=== PATIENT | female | born 1940 | race Caucasian/White ===

== ENCOUNTER 2018-12-04 22:18 | Outpatient (CLI) | payer MEDICARE, OTHER | END 2018-12-04 22:19 | disposition critical access hospital (66) | LOC: EMS 22:18 | PROVIDERS: ATTEND Surgery | DX: M54.9 Dorsalgia, unspecified (principal); R25.2 Cramp and spasm; R06.00 Dyspnea, unspecified | CPT/HCPCS: A0425; A0427 ==

== ENCOUNTER 2018-12-04 22:58 | Emergency (ER) | payer MEDICARE, OTHER ==
--- NOTE | 2018-12-05 00:11 | ED Physician Documentation ---
PD HPI BACK PAIN - Stated complaint Stated Complaint: Back PX - Chief complaint Chief Complaint: Back Pain - History obtained from History obtained from: Patient - History of Present Illness Timing - onset: Today, Other (Just prior to arrival) Timing - details: Abrupt onset Location: Mid, Lower Quality: Spasm Associated symptoms: No: Weakness, Numbness, Incontinent of urine Worsened by: Movement Recently seen: Not recently seen - Additional information Additional information: This is an 78-year-old woman who presents with her complains that she is having "terrible back pain". Patient has a long-standing history of back pain is Bobo had surgery and had an MRI done before she left [place] on vacation about a month ago and they told her she probably needs more surgery. Her doctor sent her on vacation with hydrocodone and Flexeril [place] and she got this terrible pain in her back so she went to the emergency department at [facility]. She said the pain was just unbearable. They gave her a dose of Toradol. Told her to stop taking hydrocodone and the Flexeril and placed her on Robaxin and Valium. She took a Valium tablet at 7 PM tonight and Robaxin around 930. She tried to lay down in the recliner to sleep but could not get comfortable so she went to sit down on the side of the bed and lay back and the back just spasmed and she was in e xcruciating pain. The ambulance was called and she was given 2 mg of morphine in route and the pain is now down to 5 out of 10 but it certainly increases significantly with movement. She cannot take anti-inflammatories because she had a partial gastrectomy secondary to ulcers and cannot take NSAIDs. They are planning to be here till the . She does have pain from the sciatic region that is chronic not any worse now. She denies abdominal pain and has had no nausea. Denies dysuria. She reports a history of pancreatitis. Review of Systems Constitutional: denies: Fever Respiratory: denies: Dyspnea GI: denies: Abdominal Pain, Nausea : denies: Dysuria Skin: denies: Rash Musculoskeletal: reports: Back pain Neurologic: reports: Other (Radicular pain due to sciatica). denies: Generalized weakness, Focal weakness PD PAST MEDICAL HISTORY - Past Medical History Past Medical History: Yes Cardiovascular: High cholesterol Respiratory: None Neuro: Peripheral neuropathy Endocrine/Autoimmune: None GI: GI bleed, Ulcers, Pancreatitis OFFICE TECHNICIAN: None : None HEENT: Macular degeneration Psych: Depression Musculoskeletal: Chronic back pain Derm: None - Past Surgical History Past Surgical History: Yes General: Cholecystectomy, Gastric surgery Ortho: Spine surgery /OFFICE TECHNICIAN: Hysterectomy HEENT: Cataracts - Present Medications Home Medications: Ambulatory Orders Medication Instructions Recorded Confirmed Escitalopram Oxalate [Lexapro] 20 mg PO DAILY 12/04/18 12/04/18 Esomeprazole Magnesium [Nexium] 40 mg PO DAILY PM 12/04/18 12/04/18 Gabapentin 300 mg PO TID 12/04/18 12/04/18 Methocarbamol [Robaxin-750] 750 mg PO QID 12/04/18 12/04/18 diazePAM [Diazepam] 5 mg PO Q8HR 12/04/18 12/04/18 predniSONE [Deltasone] 40 mg PO DAILY 12/04/18 12/04/18 rOPINIRole [Requip] 0.25 mg PO DAILY PM 12/04/18 12/04/18 - Allergies Allergies/Adverse Reactions: Allergies Allergy/AdvReac Type Severity Reaction Status Date / Time codeine Allergy Hives Verified 12/04/18 23:21 pentazocine [From [place]] Allergy Unknown Verified 12/04/18 23:21 - Social History Does the pt smoke?: Yes Smoking Status: Current some day smoker Does the pt drink ETOH?: No Does the pt have substance abuse?: No - Immunizations Immunizations are current?: Yes - POLST Patient has POLST: No PD ED PE NORMAL - Vitals Vital signs reviewed: Yes - General General: Alert and oriented X 3, No acute distress, Well developed/nourished, Other (Patient is moving around in the bed without any difficulty occasionally will grimace and grabbed the side of the railing with movement.) - HEENT HEENT: Atraumatic - Cardiac Cardiac: RRR, No murmur - Respiratory Respiratory: No respiratory distress, Clear bilaterally - Abdomen Abdomen: Normal bowel sounds, Soft - Back Back: No CVA TTP - Derm Derm: Normal color, Warm and dry, No rash - Extremities Extremities: No deformity - Neuro Neuro: Alert and oriented X 3, No motor deficit, No sensory deficit, Normal speech - Psych Psych: Normal mood, Normal affect Results - Vitals Vitals: Vital Signs - 24 hr 12/04/18 23:02 Temperature 36.2 C L Heart Rate 73 Respiratory 18 Rate Blood Pressure 148/84 H O2 Saturation 98 Oxygen O2 Source Room air - Labs Labs: Laboratory Tests 12/05/18 01:05 Urine Color YELLOW Urine Clarity CLEAR Urine pH 5.0 Ur Specific [place] 1.025 Urine Protein NEGATIVE Urine Glucose (UA) NEGATIVE Urine Ketones NEGATIVE Urine Occult Blood NEGATIVE Urine Nitrite NEGATIVE Urine Bilirubin NEGATIVE Urine Urobilinogen 0.2 (NORMAL) Ur Leukocyte Esterase TRACE H Urine RBC None Seen Urine WBC 0-3 Ur Squamous Epith Cells FEW Squamous Urine Bacteria None Seen Ur Microscopic Review INDICATED Urine Culture Comments INDICATED PD MEDICAL DECISION MAKING - ED course Complexity details: reviewed results, d/w patient ED course: Urinalysis had only a couple white blood cells and a culture has been set up. Patient has not had any significant urinary symptoms so we will wait for the culture to decide if needs treatment. She got Toradol IV and then was up got herself dressed pulled out her IV and said she was ready to go. As I walked in the room she just bent down to pull her shoes on and seemed to be moving fairly easily. Departure - Departure Disposition: 01 Home, Self Care Clinical Impression: Back pain Qualifiers: Back pain location: low back pain Chronicity: chronic Back pain laterality: midline Sciatica presence: with sciatica Sciatica laterality: sciatica of left side Qualified Code(s): M54.42 - Lumbago with sciatica, left side; G89.29 - Other chronic pain Condition: Good Instructions: ED Chronic Pain Management Follow-Up: your,doctor [Other] Comments: Continue to take the Robaxin, Valium and prednisone that you are prescribed. Can try ice on the lower back. Follow-up with your doctor about further pain management.
[2018-12-05] MEDS ORDERED: KETOROLAC 30 MG/ML VIAL IVP STA (00:26)
[2018-12-05 01:11] LABS: BILIRUBIN,URINE NEGATIVE (NEGATIVE); CLARITY,URINE CLEAR (CLEAR); GLUCOSE, URINE (UA) NEGATIVE (NEGATIVE); KETONES,URINE (UA) NEGATIVE (NEGATIVE); LEUKOCYTE ESTERASE, URINE TRACE (NEGATIVE); NITRITE,URINE NEGATIVE (NEGATIVE); OCCULT BLOOD,URINE NEGATIVE (NEGATIVE); PROTEIN,URINE NEGATIVE (NEGATIVE); UROBILINOGEN,URINE 0.2 (NORMAL) E.U./dL (NORMAL)
[2018-12-05 01:18] LABS: BACTERIA,URINE None Seen /HPF (None Seen); RBC,URINE None Seen /HPF (0-5); SQUAMOUS EPITHELIAL CELL,UR FEW Squamous (<= Few)
[2018-12-05 01:57] VITALS: BP 142/87
== END 2018-12-05 01:57 | disposition home or self-care (01) ==
LOC: ED 22:58
DX: M54.42 Lumbago with sciatica, left side (principal); G89.29 Other chronic pain; R32 Unspecified urinary incontinence; G62.9 Polyneuropathy, unspecified; F17.200 Nicotine dependence, unspecified, uncomplicated
CPT/HCPCS: 81001; 81003; 87086; 96374; 99284